=== PATIENT | female | born 1985 | race Caucasian/White ===

== ENCOUNTER 2024-10-07 00:31 | Emergency (ER) | payer MEDICAID ==
[~2024-10-07] VITALS: Ht 172.7 cm; Wt 155.0 kg
[2024-10-07 00:32] VITALS: TEMP 98.8
[2024-10-07 01:10] VITALS: BP 161/100; PULSE 117; RESP 16; O2SAT 98
== END 2024-10-07 01:22 ==
LOC: ER 00:32
DX: Z02.89 Encounter for other administrative examinations (principal); E11.65 Type 2 diabetes mellitus with hyperglycemia; Z88.1 Allergy status to other antibiotic agents; Z72.89 Other problems related to lifestyle
CPT/HCPCS: 99283

== ENCOUNTER 2024-10-07 18:38 | Emergency (ER) | payer MEDICAID ==
[~2024-10-07] VITALS: Ht 172.7 cm; Wt 123.2 kg
[2024-10-07 18:45] VITALS: BP 166/113; PULSE 99; RESP 15; TEMP 96.8; O2SAT 100
== END 2024-10-07 20:10 | disposition home or self-care (01) ==
LOC: ER 18:39
DX: S60.222A Contusion of left hand, initial encounter (principal); E11.9 Type 2 diabetes mellitus without complications; Z88.1 Allergy status to other antibiotic agents; Z72.89 Other problems related to lifestyle; W22.01XA Walked into wall, initial encounter; Y93.89 Activity, other specified; Y92.89 Other specified places as the place of occurrence of the external cause; Y99.8 Other external cause status
CPT/HCPCS: 73130; 99283